=== PATIENT | male | born 1970 | race Caucasian/White ===

== ENCOUNTER 2017-04-16 19:27 | Emergency (ER) | payer BC ==
[~2017-04-16] VITALS: Ht 185.4 cm; Wt 101.1 kg
[~2017-04-16 19:27] MED LIST: CLOB-65 TOP; PRVC/20 PO; [UNRECOGNIZED DRUG - CODE] TOP
[2017-04-16 19:29] VITALS: TEMP 36.7; Ht 185.4 cm; Wt 101.1 kg
[2017-04-16] MEDS ORDERED: ATOR10TA88 PO (19:59)
[2017-04-16] MEDS ORDERED: OPTIRAY 320 IV PRN (20:00)
[2017-04-16] MEDS ORDERED: HYDR12.55 PO (20:00)
[2017-04-16] MEDS ORDERED: ASPI81TA28 PO (20:00)
[2017-04-16 20:05] LABS: BASO % 0.3 %; BASO ABS # 0.03 K/uL (0-0.2); COMPLETE YES; EOS % 5.5 %; HEMATOCRIT 48.2 % (42-52); IG% 0.3 %; LYMPH % 29.7 %; LYMPH ABS # 2.73 K/uL (1.2-3.4); MEAN CORPUSCULAR HEMOGLOBIN 32.5 pg (25-34); MEAN CORPUSCULAR HGB CONC 36.9 g/dl (32-36); MONO % 5.8 %; NEUT % 58.4 %; PLATELET COUNT 228 K/uL (130-400); RED BLOOD COUNT 5.48 M/uL (4.7-6.1); WHITE BLOOD COUNT 9.19 K/uL (4.8-10.8)
[2017-04-16 20:17] LABS: INR 0.9 (0.9-1.1)
[2017-04-16 20:35] LABS: BUN/CREATININE RATIO 8.2 (10-20); CALCIUM 9.2 mg/dl (8.5-10.1); CREATININE 1.3 mg/dl (0.60-1.40)
[2017-04-16 20:40] LABS: POTASSIUM 3.3 mmol/L (3.5-5.1)
--- NOTE | 2017-04-16 21:06 | DIAGNOSTIC IMAGING REPORT ---
CT ANGIOGRAM OF THE BRAIN COMBO; CT ANGIOGRAM OF THE NECK CLINICAL HISTORY: Tinnitus. 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 COMPARISON STUDY: CT of the brain dated 10/16/2014. MR angiogram of the brain dated 10/18/2014. TECHNIQUE: Unenhanced axial CT scan of the brain is performed. Subsequently, following the IV administration of 110 of Optiray 320, CT angiogram of the head and neck was performed from the aortic arch to the vertex. Images are reviewed in the axial, sagittal, and coronal planes. 3-D MIPS images are created and assessed. IV contrast was administered without complication. All measurements were calculated based on NASCET criteria. A dose lowering technique was utilized adhering to the principles of ALARA. CT DOSE: 1208.64 mGy.cm FINDINGS: Brain parenchyma: The brain parenchyma is normal in appearance. There is no hemorrhage, mass effect, or evidence of acute territorial ischemia by CT criteria. There is no evidence of enhancing mass lesion on the angiogram phase images. The ventricles, sulci, and cisterns are normal in configuration. Lowe-white matter differentiation is preserved. No extra-axial fluid collection is seen. Thoracic aorta: Visualized portions of the thoracic aorta are normal in caliber. The aortic arch demonstrates standard 3-vessel anatomy. Right carotid arterial system: The right common carotid artery is patent, as are the right internal and external carotid arteries. Mild atherosclerotic plaque is seen in the right carotid bulb and the proximal right internal carotid artery. No dissection is identified. The right internal carotid artery demonstrates a patent appearance, best appreciated on the coronal reformats. Left carotid arterial system: The left common carotid artery is patent, as are the left internal and external carotid arteries. Minimal atherosclerotic plaque is seen in the left carotid bulb. No dissection is seen. The left internal carotid artery demonstrates a beaded appearance, best appreciated on the coronal reformats. Vertebral arteries: Widely patent bilaterally noting left-sided dominance. No dissection is seen. Subclavian arteries: Widely patent bilaterally. Intracranial vasculature: The internal carotid arteries are patent at the skull base, as are the anterior and middle cerebral arteries bilaterally. The right A1 segment is diminutive. The vertebrobasilar system and posterior cerebral arteries are widely patent. The left vertebral artery is dominant. There is no aneurysm, high-grade stenosis, or focal vessel cut off seen throughout the intracranial circulation. Jugular veins: Widely patent bilaterally. Dural sinuses: Patent. Lung apices: Partially visualized upper lobe lung parenchyma appears clear. Soft tissues: The visualized pharyngeal soft tissues are normal in appearance noting angiographic phase technique. The oropharyngeal airway appears widely patent. The salivary and thyroid glands are normal in appearance. No cervical lymphadenopathy is seen. Skeletal structures: The calvarium appears intact. The cervical spine is within normal limits noting mild spondylotic change. Sinuses and mastoids: The paranasal sinuses are clear. The mastoid air cells are well pneumatized. IMPRESSION: 1. No acute intracranial abnormality. 2. Unremarkable CT angiogram of the brain. 3. The carotid arterial systems and the vertebral arteries in the neck are patent. 4. The right internal carotid artery dissection suggested on the 2015 examinations is no longer apparent. 5. Both internal carotid arteries demonstrate a beaded appearance suggesting fibromuscular dysplasia. Electronically signed by: Hill Valentin M.D. 04/16/2017 9:04 PM Dictated Date/Time: 04/16/2017 8:47 PM
--- NOTE | 2017-04-16 21:35 | EMERGENCY ROOM VISIT NOTE ---
History Report prepared by Altagracia: Precious Medel Under the Supervision of: Dr. Steve Bingham M.D. First contact with patient: 19:35 Chief Complaint: HEARING LOSS Stated Complaint: HEARING WENT OUT IN ONE EAR, TINNITUS History of Present Illness The patient is a 46 year old male who presents to the Emergency Room with complaints of persistent left ear hearing loss starting 1 hour ago. The patient has a history of spontaneous bilateral carotid dissection 2 years ago. They did not find any reason for the dissection. At that time, he had hearing loss, severe pounding headache, vomiting, and difficultly standing. He presents to the ED over concerns of dissection. The hearing loss started suddenly and presented with some ringing. He was on the phone at home when the hearing loss started. He has a mild headache currently and some left sided neck pain. He is slightly dizzy with spinning and hesitated before deciding to drive here. He denies any numbness, weakness, trouble speaking, trouble swallowing, chest pain , SOB, or abdominal pain. He denies any recent sickness or congestion. He denies any trauma. 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 He does work out. He is on a low dose aspirin. He has not had any limitations since the dissection. Source of History: patient Onset: 1 hour ago Position: eye (left) Quality: other (hearing loss) Timing: other (persistent) Associated Symptoms: + headache, + neck pain, No chest pain, No SOB, No abdominal pain, No weakness, No numbness Note: Pt reports dizziness. Pt denies trouble speaking/swallowing. Review of Systems See HPI for pertinent positives & negatives. A total of 10 systems reviewed and were otherwise negative. Past Medical & Surgical Medical Problems: (1) Cough (2) Sinus congestion Old medical records were reviewed. Nurse's notes were reviewed and I agree with. Family History No pertinent family history stated. Social History Smoking Status: Never Smoker Drug Use: none Marital Status: single Occupation Status: employed Current/Historical Medications Scheduled Aspirin (Aspirin Ec), 81 MG PO QAM Atorvastatin (Lipitor), 10 MG PO QPM Hydrochlorothiazide (Hydrochlorothiazide), 12.5 MG PO QAM Allergies Coded Allergies: Ibuprofen (Verified Allergy, Unknown, HIVES, 04/16/17) Pravastatin (Unverified Allergy, Unknown, DIZZINESS, 04/16/17) Physical Exam Vital Signs Date Time Temp Pulse Resp B/P (MAP) Pulse Ox O2 Delivery O2 Flow Rate FiO2 04/16/17 21:49 92 18 150/98 96 04/16/17 20:46 90 18 153/107 96 Room Air 04/16/17 19:29 36.7 107 18 172/100 97 Room Air Physical Exam General: Non-ill appearing middle age male in no acute distress. HEENT: Normal cephalic atraumatic. Pupils are equal round and reactive to light. Sclerae are anicteric. Extraocular movements are intact. TMs are normal , canals are clear with scant wax. Oropharynx is pink with moist mucous membranes. No swelling of the mouth lips or tongue. Neck: Supple with a midline trachea. No meningeal signs or stiffness, no JVD or bruits. No Stridor. Chest: Clear to auscultation bilaterally. No wheezes or rhonchi. No increased work of breathing. Heart: regular rate and rhythm. Abdomen: Soft nontender, nondistended without rebound guarding or rigidity. Extremities: No cyanosis clubbing or edema. No calf tenderness or assymetry Spine/Back. Non tender to palpation. No CVA tenderness Skin: Good turgor without rashes. Neurologic exam: Cranial nerves two through 12 are intact. Motor and sensation are intact and symmetrical throughout. Finger to nose intact. No pronator drift. Medical Decision & Procedures ER Provider Diagnostic Interpretation: Radiology results as stated below per my review and radiologist interpretation: CT ANGIOGRAM OF THE BRAIN COMBO; CT ANGIOGRAM OF THE NECK CLINICAL HISTORY: Tinnitus. 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 COMPARISON STUDY: CT of the brain dated 10/16/2014. MR angiogram of the brain dated 10/18/2014. TECHNIQUE: Unenhanced axial CT scan of the brain is performed. Subsequently, following the IV administration of 110 of Optiray 320, CT angiogram of the head and neck was performed from the aortic arch to the vertex. Images are reviewed in the axial, sagittal, and coronal planes. 3-D MIPS images are created and assessed. IV contrast was administered without complication. All measurements were calculated based on NASCET criteria. A dose lowering technique was utilized adhering to the principles of ALARA. CT DOSE: 1208.64 mGy.cm FINDINGS: Brain parenchyma: The brain parenchyma is normal in appearance. There is no hemorrhage, mass effect, or evidence of acute territorial ischemia by CT criteria. There is no evidence of enhancing mass lesion on the angiogram phase images. The ventricles, sulci, and cisterns are normal in configuration. Lowe-white matter differentiation is preserved. No extra-axial fluid collection is seen. Thoracic aorta: Visualized portions of the thoracic aorta are normal in caliber. The aortic arch demonstrates standard 3-vessel anatomy. Right carotid arterial system: The right common carotid artery is patent, as are the right internal and external carotid arteries. Mild atherosclerotic plaque is seen in the right carotid bulb and the proximal right internal carotid artery. No dissection is identified. The right internal carotid artery demonstrates a patent appearance, best appreciated on the coronal reformats. Left carotid arterial system: The left common carotid artery is patent, as are the left internal and external carotid arteries. Minimal atherosclerotic plaque is seen in the left carotid bulb. No dissection is seen. The left internal carotid artery demonstrates a beaded appearance, best appreciated on the coronal reformats. Vertebral arteries: Widely patent bilaterally noting left-sided dominance. No dissection is seen. Subclavian arteries: Widely patent bilaterally. Intracranial vasculature: The internal carotid arteries are patent at the skull base, as are the anterior and middle cerebral arteries bilaterally. The right A1 segment is diminutive. The vertebrobasilar system and posterior cerebral arteries are widely patent. The left vertebral artery is dominant. There is no aneurysm, high-grade stenosis, or focal vessel cut off seen throughout the intracranial circulation. Jugular veins: Widely patent bilaterally. Dural sinuses: Patent. Lung apices: Partially visualized upper lobe lung parenchyma appears clear. Soft tissues: The visualized pharyngeal soft tissues are normal in appearance noting angiographic phase technique. The oropharyngeal airway appears widely patent. The salivary and thyroid glands are normal in appearance. No cervical lymphadenopathy is seen. Skeletal structures: The calvarium appears intact. The cervical spine is within normal limits noting mild spondylotic change. Sinuses and mastoids: The paranasal sinuses are clear. The mastoid air cells are well pneumatized. IMPRESSION: 1. No acute intracranial abnormality. 2. Unremarkable CT angiogram of the brain. 3. The carotid arterial systems and the vertebral arteries in the neck are patent. 4. The right internal carotid artery dissection suggested on the 2015 examinations is no longer apparent. 5. Both internal carotid arteries demonstrate a beaded appearance suggesting fibromuscular dysplasia. Electronically signed by: Hill Valentin M.D. 04/16/2017 9:04 PM Dictated Date/Time: 04/16/2017 8:47 PM Laboratory Results 04/16/17 19:50 Red Blood Count 5.48, Mean Corpuscular Volume 88.0, Mean Corpuscular Hemoglobin 32.5, Mean Corpuscular Hemoglobin Concent 36.9, Mean Platelet Volume 10.0, Neutrophils (%) (Auto) 58.4, Lymphocytes (%) (Auto) 29.7, Monocytes (%) (Auto) 5.8, Eosinophils (%) (Auto) 5.5, Basophils (%) (Auto) 0.3, Neutrophils # (Auto) 5.36, Lymphocytes # (Auto) 2.73, Monocytes # (Auto) 0.53, Eosinophils # (Auto) 0.51, Basophils # (Auto) 0.03 04/16/17 19:50 Test 04/16/17 19:50 White Blood Count 9.19 K/uL (4.8-10.8) Red Blood Count 5.48 M/uL (4.7-6.1) Hemoglobin 17.8 g/dL (14.0-18.0) Hematocrit 48.2 % (42-52) Mean Corpuscular Volume 88.0 fL (80-100) Mean Corpuscular Hemoglobin 32.5 pg (25-34) Mean Corpuscular Hemoglobin Concent 36.9 g/dl (32-36) Platelet Count 228 K/uL (130-400) Mean Platelet Volume 10.0 fL (7.4-10.4) Neutrophils (%) (Auto) 58.4 % Lymphocytes (%) (Auto) 29.7 % Monocytes (%) (Auto) 5.8 % Eosinophils (%) (Auto) 5.5 % Basophils (%) (Auto) 0.3 % Neutrophils # (Auto) 5.36 K/uL (1.4-6.5) Lymphocytes # (Auto) 2.73 K/uL (1.2-3.4) Monocytes # (Auto) 0.53 K/uL (0.11-0.59) Eosinophils # (Auto) 0.51 K/uL (0-0.5) Basophils # (Auto) 0.03 K/uL (0-0.2) RDW Standard Deviation 40.9 fL (36.4-46.3) RDW Coefficient of Variation 12.8 % (11.5-14.5) Immature Granulocyte % (Auto) 0.3 % Immature Granulocyte # (Auto) 0.03 K/uL (0.00-0.02) Prothrombin Time 10.0 SECONDS (9.0-12.0) Prothromb Time International Ratio 0.9 (0.9-1.1) Activated Partial Thromboplast Time 27.2 SECONDS (21.0-31.0) Partial Thromboplastin Ratio 1.0 Anion Gap 5.0 mmol/L (3-11) Est Creatinine Clear Calc Drug Dose 86.9 ml/min Estimated GFR () 74.8 Estimated GFR (Non- 64.5 BUN/Creatinine Ratio 8.2 (10-20) Calcium Level 9.2 mg/dl (8.5-10.1) Laboratory studies as stated above per my review. ED Course 1935: Past medical records reviewed. The patient was evaluated in room C4, and a complete history and physical examination were performed. 2043: I reevaluated the patient. He is back from CT scan. He is doing well. 2119: Upon reevaluation, the patient is feeling much better. I discussed the results and treatment plan with him. He verbalized agreement of the treatment plan. The patient was discharged home. Medical Decision Differentials include, but are not limited to; vascular disease, carotid dissection, migraine, congestion, infection, electrolyte or metabolic abnormality. This patient comes in as described above he had sudden onset of decreased hearing in his left ear as well as some vague pain in the left side of his head he has a history of a spontaneous bilateral carotid dissection in the past was concerned about some sort of vascular process such as that. He is not currently on any blood thinners with exception of a low dose aspirin. He's had no fall or trauma or fever or chills or recent illness. He looks well on exam and tympanic membranes look normal. He has nothing to suggest infection. IV access was established and and blood work was obtained. I did a CTA of his head and neck and there are no vascular abnormality seen no evidence dissection no acute abnormalities of the brain. His blood work was also unremarkable and has no significant electrolyte or metabolic abnormalities. He is feeling 100% better was reassured that at this point there is no evidence to suggest vascular pathology or carotid dissection. He will be discharged home and was encouraged for was doctor this week for recheck. Blood pressure was moderately elevated although it seems to be coming down he should have his doctor recheck this as well. He should return ER if worsening symptoms or any new problems or concerns. Medication Reconcilliation Current Medication List: was personally reviewed by me Blood Pressure Screening Patient's blood pressure: Elevated blood pressure Blood pressure disposition: Elevated BP felt to be situational Impression Primary Impression: Tinnitus Additional Impression: Left-sided headache Scribe Attestation The scribe's documentation has been prepared under my direction and personally reviewed by me in its entirety. I confirm that the note above accurately reflects all work, treatment, procedures, and medical decision making performed by me. Departure Information Dispostion Home / Self-Care Referrals Tato Cardozo D.O. (PCP) Forms HOME CARE DOCUMENTATION FORM, IMPORTANT VISIT INFORMATION, WORK / SCHOOL INSTRUCTIONS Patient Instructions My [employer] Additional Instructions Rest. Return if: Increasing pain, worsening symptoms, numbness weakness, any new problems or concerns. Follow-up with your doctor Tuesday for recheck Problem Qualifiers
[2017-04-16 21:49] VITALS: BP 150/98; PULSE 92; O2SAT 96
== END 2017-04-16 21:52 | disposition home or self-care (01) ==
LOC: C.EDB 19:28 → C.EDC 21:52
DX: H93.19 Tinnitus, unspecified ear (principal); R51 Headache; Z79.82 Long term (current) use of aspirin